=== PATIENT | female | born 1985 ===

== ENCOUNTER 2017-09-09 17:55 | Emergency (ER) | payer MEDICAID ==
--- NOTE | 2017-09-09 19:15 | ED ---
Throat Pain/Nasal Congestion - HPI Summary HPI Summary: Complains of left side lower tooth pain 2 days. History of tooth extraction left lower side 2 days ago. [facility]. Denies prescription for antibiotics or pain medication. Patient states she has been taking Tylenol and ibuprofen, but pain has been increasing. Denies purulent drainage, fever, N/V/D, sore throat, change in eating or drinking, abdominal pain. None. - History of Current Complaint Chief Complaint: EDDentalPain Time Seen by Provider: 09/09/17 18:48 Hx Obtained From: Patient Onset/Duration: Gradual Onset, Lasting Days Severity: Moderate Associated Signs And Symptoms: Positive: Negative Cough: None Related History: Prior ENT Surgery - Epiglottits Risk Factors Epiglottis Risk Factors: Negative - Allergies/Home Medications Allergies/Adverse Reactions: Allergies Allergy/AdvReac Type Severity Reaction Status Date / Time Penicillins Allergy Unknown Verified 09/09/17 18:26 Reaction Details Home Medications: Home Medications Amphetamine MIXED SALTS TAB* [Adderall TAB*] 5 mg PO DAILY 09/09/17 [History Confirmed 09/09/17] Bupropion XL* [Wellbutrin XL *] 150 mg PO DAILY 09/09/17 [History Confirmed ] PARoxetine HCL TAB* [Paxil TAB*] 40 mg PO DAILY 09/09/17 [History Confirmed ] QUEtiapine XR TAB* [SEROquel Xr TAB*] 25 mg PO BEDTIME 09/09/17 [History Confirmed 09/09/17] traZODone TAB* [Desyrel TAB*] 200 mg PO BEDTIME 09/09/17 [History Confirmed ] PMH/Surg Hx/FS Hx/Imm Hx Infectious Disease History: No Infectious Disease History: Denies: Traveled Outside the [place] in Last 30 Days - Social History Alcohol Use: None Substance Use Type: Reports: Cocaine Smoking Status (MU): Former Smoker Review of Systems Constitutional: Negative Eyes: Negative Positive: Dental Pain Cardiovascular: Negative Respiratory: Negative Gastrointestinal: Negative Genitourinary: Negative Musculoskeletal: Negative Skin: Negative Neurological: Negative Psychological: Normal All Other Systems Reviewed And Are Negative: Yes Physical Exam - Summary Physical Exam Summary: No abscess, purulent drainage, oral swelling or mass noted. Full range of motion of jaw. Pharynx normal. Uvula midline Triage Information Reviewed: Yes Vital Signs On Initial Exam: Initial Vitals Temp Pulse Resp BP Pulse Ox 99.1 F 84 18 119/78 99 09/09/17 18:24 09/09/17 18:24 09/09/17 18:24 09/09/17 18:24 09/09/17 18:24 Vital Signs Reviewed: Yes Appearance: Positive: Well-Appearing Skin: Positive: Warm Head/Face: Positive: Normal Head/Face Inspection Eyes: Positive: Normal ENT: Positive: Normal ENT inspection Dental: Positive: Percussion Tenderness @. Negative: Abscess @, Cellulitis @, Bleeding Neck: Positive: Supple Respiratory/Lung Sounds: Positive: Clear to Auscultation Cardiovascular: Positive: Normal Abdomen Description: Positive: Nontender Musculoskeletal: Positive: Normal Neurological: Positive: Normal Psychiatric: Positive: Normal AVPU Assessment: Alert - [place] Coma Scale Best Eye Response: 4 - Spontaneous Best Motor Response: 6 - Obeys Commands Best Verbal Response: 5 - Oriented Coma Scale Total: 15 Diagnostics - Vital Signs Vital Signs Temp Pulse Resp BP Pulse Ox 09/09/17 18:24 99.1 F 84 18 119/78 99 - Laboratory Lab Statement: Any lab studies that have been ordered have been reviewed, and results considered in the medical decision making process. EENT Course/Dx - Course Course Of Treatment: Physical exam unremarkable. Vital signs within normal limits. - Differential Diagnoses Differential Diagnoses: Dental Abscess, Dental Caries, Fractured Tooth, Gingivitis - Diagnoses Provider Diagnoses: Pain, dental Discharge - Sign-Out/Discharge Documenting (check all that apply): Discharge/Admit/Transfer - Discharge Plan Condition: Stable Disposition: HOME Patient Education Materials: Toothache (ED) Referrals: No Primary Care Phys,NOPCP [Primary Care Provider] - Additional Instructions: Follow-up with dentist. Return to ED for any new or worsening symptoms - Billing Disposition and Condition Condition: STABLE Disposition: HOME
[2017-09-09] MEDS ORDERED: Ketorolac TAB * 10 MG TAB PO PRN (19:24)
[2017-09-09 19:56] VITALS: BP 0/0
== END 2017-09-09 19:54 | disposition left against medical advice (07) ==
LOC: ED 17:55
DX: K08.89 Other specified disorders of teeth and supporting structures (principal); Z87.891 Personal history of nicotine dependence
CPT/HCPCS: 99282